=== PATIENT | male | born 1980 | race Caucasian/White ===

== ENCOUNTER 2017-02-24 07:27 | Emergency (ER) | payer SELFPAY ==
[~2017-02-24] VITALS: Ht 182.9 cm; Wt 75.0 kg
[2017-02-24] MEDS ORDERED: EXCEDRIN EXTRA1 EACH PO (07:36)
[2017-02-24] MEDS ORDERED: PREDNISONE20 M1 PO (08:07)
[2017-02-24 08:21] VITALS: BP 167/103
[2017-02-24] MEDS ORDERED: METOPROLOL SUCC50 M1 PO (08:29)
== END 2017-02-24 08:40 | disposition home or self-care (01) ==
LOC: ED 07:27
DX: L25.9 Unspecified contact dermatitis, unspecified cause (principal); I10 Essential (primary) hypertension; Z91.14 Patient's other noncompliance with medication regimen